=== PATIENT | male | born 1975 | race Caucasian/White ===

== ENCOUNTER 2017-10-23 13:43 | Emergency (ER) | payer OTHER ==
[~2017-10-23] VITALS: Ht 165.1 cm; Wt 59.0 kg
[~2017-10-23 13:43] MED LIST: AMOXICILLIN 50500 MG PO; CIPRO500 MG PO; FLEXERIL PO; FLOMAX0.4 MG PO; HYDROCODON-ACE1 EAC7 PO; HYDROCODONE-AP1 EAC6 PO; IBUPROFEN 600600 M1 PO; IBUPROFEN 800800 M1 PO; LIDOCAINE VISC100 M1 SWISH&SPIT; MEDROLDOSEPACK PO; NAPROSYN500 MG PO; NORCO 5-325 TA1 EACH PO; PAXIL10 MG PO; PAXIL20 MG; PENICILLIN V P500 MG PO; PENICILLIN VK250 MG PO; PENICILLIN VK500 MG PO; ROBAXIN500 MG PO; TRAMADOL 50 MG50 MG PO; ZOFRAN ODT4 MG PO
[2017-10-23] MEDS ORDERED: IBUPROFEN 800800 MG PO (13:55)
[2017-10-23] MEDS ORDERED: NORCO 5-325 TA1 EACH PO (13:55)
[2017-10-23] MEDS ORDERED: AMOXICILLIN 50500 MG PO (13:55)
[2017-10-23] MEDS ORDERED: LIDOCAINE VISC100 ML PO (13:55)
[2017-10-23 14:06] VITALS: BP 130/69
== END 2017-10-23 14:06 | disposition home or self-care (01) ==
LOC: M.ERS 13:43
DX: K02.9 Dental caries, unspecified (principal); F41.9 Anxiety disorder, unspecified; G89.29 Other chronic pain; M54.2 Cervicalgia; F32.9 Major depressive disorder, single episode, unspecified; F17.210 Nicotine dependence, cigarettes, uncomplicated; Z87.442 Personal history of urinary calculi